=== PATIENT | female | born 1965 | race Caucasian/White ===

== ENCOUNTER 2023-04-10 14:38 | Inpatient (IN) | payer BC ==
[~2023-04-10] VITALS: Ht 160 cm; Wt 66.8 kg
[2023-04-10 14:59] LABS: BASOPHILS # (AUTO) 0.1 X10'3 (0-0.2); BASOPHILS % (AUTO) 0.9 % (0-1); EOSINOPHILS # (AUTO) 0.2 X10'3 (0-0.9); EOSINOPHILS % (AUTO) 3.2 % (0-6); HEMATOCRIT 36.2 % (35.0-45.0); LYMPHOCYTES # (AUTO) 1.4 X10'3 (1.1-4.8); LYMPHOCYTES % (AUTO) 23.1 % (21-51); MEAN CORPUSCULAR HEMOGLOBIN 28.4 PG (27.0-31.0); MEAN CORPUSCULAR HGB CONC 33.1 g/dL (33.0-36.5); MEAN PLATELET VOLUME 9.8 FL (7.4-10.4); MONOCYTES # (AUTO) 0.9 X10'3 (0-0.9); NEUTROPHILS # (AUTO) 3.7 X10'3 (1.8-7.7); NEUTROPHILS % (AUTO) 58.8 % (42-75); PLATELET COUNT 177 X10'3 (140-440); RED BLOOD COUNT 4.21 X10'6 (4.20-5.60); RED CELL DISTRIBUTION WIDTH 13.7 % (11.5-14.5); WHITE BLOOD COUNT 6.2 X10'3 (4.5-11.0)
[2023-04-10 15:20] LABS: ALANINE AMINOTRANSFERASE 45 U/L (12-78); ALKALINE PHOSPHATASE 107 IU/L (46-116); ANION GAP 7 (8-16); ASPARTATE AMINO TRANSFERASE 30 U/L (10-37); BILIRUBIN,TOTAL 0.3 MG/DL (0.1-1.0); BLOOD UREA NITROGEN 19 MG/DL (7-18); BUN/CREATININE RATIO 19.6 (10.0-20.0); CALCIUM 9.7 MG/DL (8.5-10.1); CHLORIDE 105 MMOL/L (99-107); CREATININE 0.97 MG/DL (0.40-0.90); GLUCOSE 109 MG/DL (70-104); POTASSIUM 3.9 MMOL/L (3.5-5.1); SODIUM 137 MMOL/L (135-145); TOTAL CARBON DIOXIDE 25.2 MMOL/L (24-32); TOTAL PROTEIN 7.9 G/DL (6.4-8.2); eGFR 59 ML/MIN
[2023-04-10 15:33] LABS: PRO BRAIN NATRIURETIC PEPTIDE 64 PG/ML (0-125)
[2023-04-10] MEDS ORDERED: aspirin 81mg tab.chew PO ONE ×2 (15:40→17:55)
[2023-04-10] MEDS ORDERED: acetaminophen 325mg tablet PO ONE (19:20)
[2023-04-10] MEDS ORDERED: LORazepam 1 MG tablet PO ONE (19:20)
[2023-04-10] MEDS ORDERED: nitroGLYCERIN 0.4mg SUBLingual tab SL PRN ×2 (20:00→21:35)
[2023-04-10] MEDS ORDERED: acetaminophen 325mg tablet PO PRN (21:30)
[2023-04-10] MEDS ORDERED: potassium Cl 40MEQ/1/2NS 520ml 520 ML IV PRN (21:30)
[2023-04-10] MEDS ORDERED: potassium Cl 20 mEq SR tablet PO PRN ×2 (21:30)
[2023-04-10] MEDS ORDERED: mag hydrox/Alum hydrox/simeth 30ml oral suspension PO PRN (21:30)
[2023-04-10] MEDS ORDERED: ondansetron/PF 4mg/2ml inj IV PRN (21:30)
[2023-04-10] MEDS ORDERED: magnesium 2GM in 50ml NS 50 ML IV PRN (21:30)
[2023-04-10] MEDS ORDERED: PERFLUTREN PROTEIN-A MICROSPHR (Optison) 0.22 MG/ML 3ML VIAL IV ONE (21:30)
[2023-04-10] MEDS ORDERED: magnesium Cl slow-release 64mg tablet PO PRN (21:30)
[2023-04-10] MEDS ORDERED: magnesium 4gm in 100ml NS 100 ML IV PRN (21:30)
[2023-04-10] MEDS ORDERED: magnesium hydroxide 30ml (MOM) UD suspension PO PRN (21:30)
[2023-04-10] MEDS ORDERED: aminophylline 250mg/10ml inj. IV PRN (21:35)
[2023-04-10] MEDS ORDERED: regadenoson 0.4mg/5ml syringe IV PRN (21:35)
[2023-04-10] MEDS ORDERED: metoprolol tartrate 1mg/ml inj IV PRN (21:35)
[2023-04-10 23:31] LABS: PRO BRAIN NATRIURETIC PEPTIDE 117 PG/ML (0-125)
[2023-04-10] MEDS ORDERED: ALBU90AE2 INH (23:37)
[2023-04-10] MEDS ORDERED: ETAN50PE3 SQ (23:37)
[2023-04-10] MEDS ORDERED: ARA20T PO (23:37)
[2023-04-10] MEDS ORDERED: GABA-530 PO (23:37)
[2023-04-10] MEDS ORDERED: BUDE10.22 INH (23:37)
[2023-04-10] MEDS ORDERED: BUPR100T15 PO (23:37)
[2023-04-10] MEDS ORDERED: LORA-268 PO (23:37)
[2023-04-10] MEDS: carvedilol 6.25mg tablet PO SCH (23:59)
[2023-04-11] VITALS (17 sets, daily range): BP systolic 112–160; BP diastolic 68–90; PULSE 67–113; RESP 14–18; TEMP 97.3; O2SAT 89–100
[2023-04-11] MEDS ORDERED: LORazepam 0.5 MG tablet PO PRN (00:10)
[2023-04-11] MEDS ORDERED: albuterol 2.5 MG/3 ML nebule NEB PRN (00:10)
[2023-04-11] MEDS ORDERED: gabapentin 100mg capsule PO SCH (00:13)
[2023-04-11 04:19] LABS: HEMATOCRIT 31.6 % (35.0-45.0); HEMOGLOBIN 10.5 g/dl (12.0-16.0); MEAN CORPUSCULAR HEMOGLOBIN 28.5 PG (27.0-31.0); MEAN CORPUSCULAR HGB CONC 33.2 g/dL (33.0-36.5); MEAN CORPUSCULAR VOLUME 85.9 FL (78-98); MEAN PLATELET VOLUME 9.8 FL (7.4-10.4); PLATELET COUNT 151 X10'3 (140-440); RED BLOOD COUNT 3.67 X10'6 (4.20-5.60); RED CELL DISTRIBUTION WIDTH 13.7 % (11.5-14.5); WHITE BLOOD COUNT 5.1 X10'3 (4.5-11.0)
[2023-04-11 04:35] LABS: ALANINE AMINOTRANSFERASE 38 U/L (12-78); ALBUMIN 3.2 G/DL (3.4-5.0); ALKALINE PHOSPHATASE 81 IU/L (46-116); ANION GAP 5 (8-16); ASPARTATE AMINO TRANSFERASE 25 U/L (10-37); BILIRUBIN,TOTAL 0.3 MG/DL (0.1-1.0); BLOOD UREA NITROGEN 21 MG/DL (7-18); BUN/CREATININE RATIO 19.1 (10.0-20.0); CALCIUM 9.1 MG/DL (8.5-10.1); CHLORIDE 108 MMOL/L (99-107); GLUCOSE 97 MG/DL (70-104); MAGNESIUM 2.1 MG/DL (1.5-2.4); POTASSIUM 3.8 MMOL/L (3.5-5.1); SODIUM 140 MMOL/L (135-145); TOTAL PROTEIN 6.5 G/DL (6.4-8.2); eCRCL 47 ML/MIN; eGFR 51 ML/MIN
[2023-04-11 04:57] LABS: TOTAL CELLS COUNTED 100
[2023-04-11 05:01] LABS: PLATELET ESTIMATE NORMAL
[2023-04-11 05:03] LABS: SMUDGE CELLS FEW
[2023-04-11] MEDS ORDERED: docusate sod 100mg capsule PO SCH (08:00)
[2023-04-11] MEDS ORDERED: K and/or MAG REPLACEMENT MC SCH (08:00)
[2023-04-11] MEDS: carvedilol 6.25mg tablet PO SCH (08:00)
[2023-04-11] MEDS ORDERED: buPROPion SR 100mg tab PO SCH (08:00)
[2023-04-11] MEDS ORDERED: heparin, porcine 5000 units/ml vial SQ SCH (08:00)
[2023-04-11] MEDS ORDERED: aspirin 81mg tab.chew PO SCH (08:30)
[2023-04-11] MEDS ORDERED: budesonide 0.5mg/2ml UD nebule IH SCH (09:00)
[2023-04-11] MEDS: albuterol 2.5 MG/3 ML nebule NEB SCH ×2 (09:00→14:20)
[2023-04-11] MEDS ORDERED: amLODIPine 5mg tablet PO SCH (12:35)
[2023-04-11] MEDS ORDERED: carVEDilol 3.125mg tablet PO SCH (12:35)
--- NOTE | 2023-04-11 13:48 | NUR ---
PAGED DR. HAWK REGARDING ELIGIO SCAN RESULTS. Message: [id number]. TARI BURDICK. ELIGIO SCAN HAS RESULTED. THANK YOU. DERIK HAIR X [phone]
[2023-04-11] MEDS ORDERED: NOR5T PO (13:53)
[2023-04-11] MEDS ORDERED: COR3.125T PO (13:53)
--- NOTE | 2023-04-11 17:10 | NUR ---
Discharged home with instructions for follow up. Pt. has a good relationship with her PCP. Understands the instructions, and can make informed decisions. Teaching provided: results of the stress test and results of the echo-cardiogram. Pt. states she is currently working on anxiety management with educational guidance counselor. Stable for discharge and steady on her feet.
== END 2023-04-11 16:50 | disposition home or self-care (01) | DRG 880 ==
LOC: ER 14:39 → ED HOLD 21:30 → EDBEDREQ 04-11 02:08 → PCU 3S 04-11 07:12
PROVIDERS: ADMIT Internal Medicine; ATTEND Family Medicine
PROC: 4A02XM4 Measurement of Cardiac Total Activity, External Approach (ICD-10-PCS; principal; 2023-04-10)
PROC: 3E033HZ Introduction of Radioactive Substance into Peripheral Vein, Percutaneous Approach (ICD-10-PCS; 2023-04-10)
DX: F41.9 Anxiety disorder, unspecified (principal); I21.A1 Myocardial infarction type 2; M06.9 Rheumatoid arthritis, unspecified; I20.9 Angina pectoris, unspecified; F43.10 Post-traumatic stress disorder, unspecified; Z88.0 Allergy status to penicillin; Z88.2 Allergy status to sulfonamides; Z88.6 Allergy status to analgesic agent; Z88.8 Allergy status to other drugs, medicaments and biological substances
CPT/HCPCS: 36415; 71045; 78452; 80053; 83735; 83880; 84484; 85007; 85025; 93017; 93306; 94640; 94760; 99285; A9500; G0378; J0280; J2785